=== PATIENT | female | born 1990 | race Caucasian/White ===

== ENCOUNTER 2016-07-31 06:33 | Day surgery (SDC) | payer BC ==
[~2016-07-31] VITALS: Ht 167.6 cm; Wt 77.1 kg
[~2016-07-31 06:33] MED LIST: ALBUTEROL SULF8.5 GM IH; ASCORBIC ACID100 MG PO; CAMILA0.35 MG PO; CLEOCIN300 MG PO; FLONASE16 G1 BOTH NARES; GRALISE300 MG PO; LORYNA 3 MG-0.1 EACH PO; MOTRIN800 MG PO; PERCOCET 5/31 TABLET PO; PRENATAL TABLE1 EAC3 PO; PROTONIX40 MG PO; UNISOM50 MG PO; XANAX0.5 MG PO; ZANTAC150 MG PO
[2016-07-31 07:04] VITALS: BP 127/66
[2016-07-31 07:17] LABS: EOSINOPHIL (%) 1.9 % (0-5); EOSINOPHIL COUNT 0.2 K/uL (0-0.3); HEMATOCRIT 38.9 % (36.0-46.0); IMMATURE GRANULOCYTE (%) 0.2 % (0.0-0.7); LYMPHOCYTE COUNT 1.8 K/uL (1.0-2.8); MCHC 33.7 G/DL (30.0-36.0); MEAN PLAT.VOLUME 10.8 uM^3 (9.5-12.4); MONOCYTE (%) 5.6 % (3-12); MONOCYTE COUNT 0.5 K/uL (0-0.8); NEUTROPHIL (%) 70.2 % (45-76); NEUTROPHIL COUNT 5.8 K/uL (1.8-6.4); PLATELET COUNT 205 K/uL (156-360); RBC DIS.WIDTH-CV 12.4 % (11.8-14.6); RBC DIS.WIDTH-SD 40.1 % (39-53); RED BLOOD COUNT 4.37 M/uL (3.80-5.20); WHITE BLOOD COUNT 8.2 K/uL (4.1-10.2)
[2016-07-31 07:36] LABS: PROTHROMBIN TIME 10.2 (9.2-11.2)
[2016-07-31 07:50] LABS: ALKALINE PHOSPHATASE 91 IU/L (3-129); ANION GAP 9 MEQ/L (2-14); CHLORIDE 103 MEQ/L (99-109); GFR ESTIMATE (CALCULATED) > 59 mL/min/; GLUCOSE 91 mg/dL (70-99); POTASSIUM 3.9 MEQ/L (3.7-5.4); SAMPLE HEMOLYSIS CHECK 0; SAMPLE ICTERIC CHECK 0; SAMPLE LIPEMIA CHECK 0; SODIUM 139 MEQ/L (136-147); TOTAL BILIRUBIN 0.4 MG/DL (0.0-1.0); UREA NITROGEN (BUN) 11 mg/dL (9-23)
[2016-07-31] MEDS ORDERED: COLACE100 MG PO (10:01)
[2016-07-31] MEDS ORDERED: NORCO 5/3251 TABLET PO (10:01)
[2016-07-31 10:14] LABS: INTERNAL CONTROL VALID? YES
[2016-07-31 12:45] VITALS: BP 128/66
[2016-07-31 13:54] VITALS: BP 116/60
[2016-07-31 16:00] VITALS: BP 114/53
== END 2016-07-31 16:05 | disposition home or self-care (01) ==
LOC: SDC 06:33
PROVIDERS: Thoracic Surgery (Cardiothoracic Vascular Surgery)
PROC: 0DBQ0ZZ Excision of Anus, Open Approach (ICD-10-PCS; principal; 2016-07-31)
DX: K61.0 Anal abscess (principal)
CPT/HCPCS: 80053; 84703; 85025; 85610; 88304; J0131; J0690; J1100; J1170; J1885; J2250; J2405; J2765; J3010

== ENCOUNTER → 2017-12-08 | Outpatient (CLI) | payer BC ==
[~2017-12-08] VITALS: Ht 167.6 cm; Wt 84.4 kg
[~2017-12-08] MED LIST changes: +BUSPAR7.5 MG PO; +COLACE100 MG PO; +IRON325 M1 PO; +NORCO 5/3251 TABLET PO
[2017-12-08 11:39] VITALS: BP 117/63
== END | disposition home or self-care (01) ==
LOC: IVINF 11:30
DX: Z34.80 Encounter for supervision of other normal pregnancy, unspecified trimester (principal); Z31.82 Encounter for Rh incompatibility status; Z3A.00 Weeks of gestation of pregnancy not specified; Z67.91 Unspecified blood type, Rh negative
CPT/HCPCS: 96372; J2790